=== PATIENT | female | born 2000 | race Asian ===

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

== ENCOUNTER 2021-02-18 18:11 | Emergency (ER) | payer MEDICAID ==
[~2021-02-18] VITALS: Ht 165.1 cm; Wt 68.0 kg
[2021-02-18 18:25] VITALS: BP_SYST 96
[2021-02-18] MEDS ORDERED: PSEU30TA36 PO (19:44)
[2021-02-18] MEDS ORDERED: IBUP-1969 PO (19:44)
[2021-02-18 20:15] VITALS: BP_SYST 96
== END 2021-02-18 20:15 | disposition home or self-care (01) ==
LOC: SED 18:11
DX: J40 Bronchitis, not specified as acute or chronic (principal); Z20.822 Contact with and (suspected) exposure to COVID-19; Z79.899 Other long term (current) drug therapy
CPT/HCPCS: 36415; 71045; 99284